=== PATIENT | male | born 1950 | race American Indian/Alaskan Native ===

== ENCOUNTER 2016-08-17 09:28 | Emergency (ER) | payer MEDICARE ==
[2016-08-17 10:08] VITALS: BP 145/98
[2016-08-17] MEDS ORDERED: TETRACAINE 0.5% OU ONE (10:50)
[2016-08-17] MEDS ORDERED: FUL-GLO OP ONE (10:50)
[2016-08-17] MEDS ORDERED: MOTRIN PO ONE (10:50)
--- NOTE | 2016-08-17 11:38 | Emergency Department Report ---
Entered by JAMIA EATON, acting as scribe for NAM PELAYO PA. ED Eye Problem HPI - General Chief complaint: Eye Problems Stated complaint: RIGHT EYE SORE Time Seen by Provider: 08/17/16 10:49 Source: patient Mode of arrival: Ambulatory Limitations: No Limitations - History of Present Illness Initial comments: Pt is a 66 y.o. male who presents to ED for evaluation of six day history of constant right eye irritation that worsened last night with associated six day history of right eye erythema. He denies pain, but states that his irritation is moderate and aggravated with blinking. Pt denies known contact with individuals with pink eye. NKI. Denies fever or chills, as well as hx of DM. He reports a history of back pain, for which he is taking Flexeril. Pt states that his Tetanus is UTD. chief complaint: eye redness Onset/Timin -: days(s) Onset Description: sudden Place: other (unknown) If Injury: none Eye Symptoms: burning, redness, itching, photophobia, other (irritation) Severity: severe Severity scale (0 -10): 7 (irritation, not pain) Consistency: constant Context: other (unknown) Associated Symptoms: denies: headache, neck pain, nausea/vomiting, cough, rhinorrhea, fever, shortness of breath Treatments Prior to Arrival: OTC eye drops - Related Data Patient Tetanus UTD: Yes Previous Rx's Medication Instructions Recorded Last Taken Type Gentamicin 0.3% Ophth Soln 2 drops OP Q4H #1 bottle 08/17/16 Unknown Rx Ibuprofen [Motrin] 600 mg PO Q8H PRN #15 tablet 08/17/16 Unknown Rx Allergies Allergy/AdvReac Type Severity Reaction Status Date / Time No Known Allergies Allergy Verified 08/17/16 10:01 ED Review of Systems Comment: All other systems reviewed and negative Constitutional: denies: chills, fever Eyes: other (Positive for right eye erythema and right eye irritation). denies : eye pain, vision change ENT: congestion. denies: ear pain (c/o irritation, but denies pain), throat pain, dental pain Respiratory: denies: cough, shortness of breath, SOB with exertion, SOB at rest , stridor, wheezing Cardiovascular: denies: chest pain, palpitations, edema, syncope Gastrointestinal: denies: abdominal pain, nausea, vomiting, diarrhea Musculoskeletal: denies: back pain, joint swelling, arthralgia Skin: denies: rash, lesions Neurological: denies: headache, weakness, paresthesias, abnormal gait, vertigo ED Past Medical Hx - Past Medical History Previous Medical History?: Yes Additional medical history: "BACK PAIN" - Surgical History Past Surgical History?: Yes Additional Surgical History: "COLON TUMOR REMOVED" - Family History Family history: hypertension - Social History Smoking Status: Never Smoker Substance Use Type: Alcohol - Medications Home Medications: Home Medications Medication Instructions Recorded Confirmed Last Taken Type Gentamicin 0.3% Ophth Soln 2 drops OP Q4H #1 bottle 08/17/16 Unknown Rx Ibuprofen [Motrin] 600 mg PO Q8H PRN #15 tablet 08/17/16 Unknown Rx ED Physical Exam - General Limitations: No Limitations General appearance: alert, in no apparent distress - Head Head exam: Present: atraumatic, normocephalic, normal inspection - Eye Eye exam: Present: PERRL, EOMI, conjunctival injection, other (Normal accomodation. ). Absent: normal appearance, scleral icterus, nystagmus, periorbital swelling, periorbital tenderness Pupils: Present: normal accommodation - Expanded Eye Exam Expanded Eyelids: Normal Inspection: Right (normal neha) Pupils: Regular, Round: Bilateral, Reactive: Bilateral Sclera/Conjunctival: Normal Inspection: Left, Injection: Right Anterior chamber: Normal Inspection: Bilateral Posterior chamber: Normal Inspection: Bilateral Visual acuity (R) = 20/: 25 (20/25 OU) Visual acuity (L) = 20/: 20 With correction: No (uncorected) - ENT ENT exam: Present: normal exam, normal orophraynx, mucous membranes moist, TM's normal bilaterally, normal external ear exam, other (No pharyngeal exudate or erythema. Uvula is midline and oral airway is patent. No facial swelling. No peritonsillar abscesses. ) - Neck Neck exam: Present: normal inspection, full ROM, other (Neck is supple. No tracheal deviation. Non-tender to palpation. No adenopathy. ). Absent: tenderness, lymphadenopathy - Respiratory Respiratory exam: Present: normal lung sounds bilaterally, other (CTAB. Normal work of breathing. ). Absent: respiratory distress, wheezes, rales, rhonchi, stridor, chest wall tenderness, accessory muscle use, decreased breath sounds, prolonged expiratory - Cardiovascular Cardiovascular Exam: Present: regular rate, normal rhythm, normal heart sounds. Absent: systolic murmur, diastolic murmur - GI/Abdominal GI/Abdominal exam: Present: soft, normal bowel sounds. Absent: distended, tenderness, guarding, rebound, rigid - Extremities Exam Extremities exam: Present: other (No CCE. +2 pulses. No neurovascular compromise.) - Skin Skin exam: Present: warm, dry, intact, normal color, other (No lesions). Absent : rash, cyanosis, diaphoretic, erythema ED Course Vital Signs 08/17/16 10:02 Temperature 97.7 F Pulse Rate 71 Respiratory 17 Rate Blood Pressure 145/98 O2 Sat by Pulse 97 Oximetry - Reevaluation(s) Reevaluation #1: 08/17/16 11:32 Patient received Motrin 800 mg in emergency room for pain. Tetanus shot is up- to-date - Procedure Description Procedures done: EYE procedue: Right eye examine under Florence lamp. Tetracaine ophthalmic 0.5% 2 drops instilled in right eye. Fluorescein stain. Under Florence lamp, patient with positive corneal abrasion to right eye. Tolerated procedure well. Right eye flush with normal saline and patient reports no irritation after eyedrops instilled ED Medical Decision Making - Medical Decision Making ED course: Patient with right corneal abrasion, right eye irritation . Patient given Motrin 800 mg in emergency room. See procedure note for Florence lamp testing. Tetanus vaccine is up-to-date. Patient discharged home to follow -up with craniologist. Stable condition and given prescription for gentamicin ophthalmic and Motrin. ED Disposition Clinical Impression: Pain, eye, right Right corneal abrasion Qualifiers: Encounter type: initial encounter Qualified Code(s): S05.01XA - Injury of conjunctiva and corneal abrasion without foreign body, right eye, initial encounter Disposition: - TO HOME OR SELFCARE Is pt being admited?: No Does the pt Need Aspirin: No Condition: Stable Instructions: Eye Pain (ED), Corneal Abrasion (ED) Additional Instructions: Please follow up with craniologist in 24 hours. Increase her fluid intake Instill antibiotic drop as instructed. Prescriptions: Gentamicin 0.3% Ophth Soln 2 drops OP Q4H #1 bottle Ibuprofen [Motrin] 600 mg PO Q8H PRN #15 tablet PRN Reason: Pain Referrals: BRIANA MALDONADO MD [Primary Care Provider] - 2-3 Days WAYNE SINGH MD [Staff Physician] - 24 Hours Forms: Work/School Release Form(ED) This documentation as recorded by the abelibUMA townsend KELLY,accurately reflects the service I personally performed and the decisions made by me,NAM PELAYO PA.
== END 2016-08-17 11:43 | disposition home or self-care (01) ==
LOC: ED 09:28
DX: S05.01XA Injury of conjunctiva and corneal abrasion without foreign body, right eye, initial encounter (principal); X58.XXXA Exposure to other specified factors, initial encounter; Y93.9 Activity, unspecified; Y92.9 Unspecified place or not applicable; Y99.9 Unspecified external cause status
CPT/HCPCS: 99284